=== PATIENT | female | born 1980 | race Caucasian/White ===

== ENCOUNTER 2024-09-14 17:03 | Emergency (ER) | payer OTHER, SELFPAY ==
[2024-09-14 17:05] VITALS: BP 134/88; PULSE 92; RESP 18; TEMP 36.4; O2SAT 99; BMI 29.0
[2024-09-14] MEDS: Ondansetron 4 MG/2 ML Vial IV (17:30)
[2024-09-14] MEDS: Morphine 4 MG/ML Syringe IV ×2 (17:31→19:36)
[2024-09-14 17:42] LABS: Bacteria 0 SEEN /hpf (None Seen); Mucous, Urine 0 SEEN /hpf (<or=2+); Red Blood Cells-Urine 0 SEEN /hpf (0-5); White Blood Cells 0 SEEN /hpf (0-5)
[2024-09-14 17:43] LABS: Absolute Lymphocyte Count 0.49 X10^3/uL (0.83-4.51); Absolute Neutrophil Count 8.4 X10^3/uL (2.0-7.7); Basophil# 0.03 X10^3/uL; Basophil% 0.3 % (0-1); Eosinophil# 0.09 X10^3/uL; Hematocrit 38.3 % (37-47); Hemoglobin 12.9 g/dL (12.0-15.0); Lymphocyte # 0.49 X10^3/ul (0.83-4.51); Lymphocyte % 5.2 % (19-41); Mean Corp Hgb Conc 33.7 g/dL (32-36); Mean Corpuscular Volume 89.1 fL (81-99); Mean Platelet Vol. 8.7 fl (6.2-12.0); Monocyte# 0.32 X10^3/uL; Monocyte% 3.4 % (0-10); NRBC Flagged by Analyzer 0 % (0-5); Neutrophil # 8.37 X10^3/uL (2.7-7.7); Neutrophil % 89.5 % (47-70); POSITIVE DIFFERENTIAL YES; Platelet Count 385 K/mm3 (150-450); RBC Distribution Width SD 42.1 fl (35.1-43.9); White Blood Count 9.4 K/mm3 (4.4-11.0)
[2024-09-14 17:49] LABS: Color, Urine Yellow (Yellow); Glucose, Dipstick Normal (Normal); Ketone-Dipstick Negative (Negative); Leukocyte Esterase-Dipstick Negative /ul (Negative); Nitrite-Dipstick Negative (Negative); Occult Blood-Urine Negative /ul (Negative); Protein-Dipstick 15 mg/dl (Negative); Specific Gravity, Urine 1.015 (1.002-1.030); Urine Bilirubin Dipstick Negative (Negative); Urine Clarity Clear (Clear); Urine Urobilinogen Normal (Normal)
[2024-09-14 17:53] LABS: Internal QC Validated? YES +Cl - CLEAR BKGD; Pregnancy, Urine Negative Negative; Record Kit Lot#,Urine Preg 869294
[2024-09-14 18:04] LABS: ALB/GLOB Ratio 1.1 RATIO (0.9-2.4); AST(SGOT) 31 U/L (15-37); Alanine Aminotransfer ALT/SGPT 45 U/L (13-56); Albumin, Serum 3.5 g/dL (3.2-5.0); Alkaline Phosphatase 64 U/L (45-117); Anion Gap 4 (5-15); BUN 29 mg/dL (7-18); Calcium,Total 7.9 mg/dL (8.5-10.1); Chloride 109 mmol/L (98-107); Creatinine, Serum 0.74 mg/dL (0.55-1.02); EST Glomerular Filtration Rate 91 mL/min (>60); Est Glom Filt Rate - Afr Amer 110 mL/min (>60); Estimated Creatinine Clearance 111.39 ml/min; Globulin 3.3 g/dL (2.2-4.2); Glucose 96 mg/dL (74-106); Lipase 27 U/L (13-75); Potassium 3.8 mmol/L (3.5-5.1); Protein, Total 6.8 g/dL (6.4-8.2); Sodium Level 139 mmol/L (136-145)
[2024-09-14 18:19] LABS: Squamous Epithelial Cells - UA 5-10 SEEN /hpf (5-10)
[2024-09-14 19:04] VITALS: BP 122/85; PULSE 76; RESP 16; O2SAT 99
[2024-09-14] MEDS: Metoclopramide 10 MG/2 ML Vial 5 MG IV (19:36)
[2024-09-14 20:02] VITALS: BP 99/77; PULSE 86; RESP 16; TEMP 36.8; O2SAT 97
== END 2024-09-14 20:04 | disposition home or self-care (01) ==
PROVIDERS: Emergency Provider Emergency Medicine; Visit Provider Emergency Medicine
DX: K52.9 Noninfective gastroenteritis and colitis, unspecified (principal)
CPT/HCPCS: 74177; 80053; 81001; 81025; 83690; 85025; 87631; 96374; 96375; 96376; 99283; Q9967; A4216; J2405

== ENCOUNTER 2025-01-06 16:57 | Emergency (ER) | payer OTHER, SELFPAY ==
[2025-01-06] VITALS (7 sets, daily range): BP systolic 102–162; BP diastolic 70–130; PULSE 89–128; RESP 12–20; TEMP 36.4–36.9; O2SAT 97–100; BMI 29.8
[2025-01-06] MEDS: 0.9% Normal Saline (1000mL) 1,000 ML 1000 ML IV ×2 (19:05→21:53)
[2025-01-06 19:19] LABS: Absolute Lymphocyte Count 2.74 X10^3/uL (0.83-4.51); Basophil# 0.05 X10^3/uL; Basophil% 0.4 % (0-1); Eosinophil# 0.11 X10^3/uL; Eosinophils% 0.9 % (0-5); Hematocrit 36.2 % (37-47); Hemoglobin 12.6 g/dL (12.0-15.0); Lymphocyte # 2.74 X10^3/ul (0.83-4.51); Lymphocyte % 22.7 % (19-41); Mean Corp Hgb Conc 34.8 g/dL (32-36); Mean Corpuscular Hgb 29.9 pg (27.0-32.0); Mean Platelet Vol. 8.7 fl (6.2-12.0); Monocyte# 1.11 X10^3/uL; Monocyte% 9.2 % (0-10); NRBC Flagged by Analyzer 0 % (0-5); Neutrophil # 7.98 X10^3/uL (2.7-7.7); Neutrophil % 66.2 % (47-70); Platelet Count 387 K/mm3 (150-450); RBC Distribution Width CV 12.2 % (11.6-14.6); RBC Distribution Width SD 38.4 fl (35.1-43.9); Red Blood Count 4.21 M/mm3 (4.2-5.4); White Blood Count 12.1 K/mm3 (4.4-11.0)
[2025-01-06 19:51] LABS: Anion Gap 13 (5-15); BUN 23 mg/dL (4-19); BUN/Creat Ratio 31.7 RATIO (10-20); Calcium,Total 9.1 mg/dL (7.6-11.0); Carbon Dioxide 23.8 mmol/L (21.0-32.0); Chloride 100 mmol/L (98-108); Creatinine, Serum 0.73 mg/dL (0.70-1.20); EST Glomerular Filtration Rate 106 (>60); Estimated Creatinine Clearance 113.38 ml/min (50-250); Glucose 92 mg/dL (70-99); Potassium 3.3 mmol/L (3.3-5.1); Sodium Level 137 mmol/L (133-145)
[2025-01-06 19:52] LABS: Lactic Acid 1.7 mmol/L (0.0-2.0)
--- NOTE | 2025-01-06 22:31 | EX.ED.DYSGE1 ---
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 She works as a surgical intensive care nurse. She has a cared for patient with C. difficile recently. She has not been on any antibiotic in the past month. She reports nausea vomiting x 1 on Monday. She had continuous nausea since. She has had profuse diarrhea. She states she is content time since midnight today alone. She does endorse thirst and dry mouth. She does endorse orthostatic lightheadedness. She denies fever or chills. She complains of generalized weakness. She denies headache, visual, ocular auditory symptoms. She denies cardiac or respiratory symptoms. She denies urologic symptoms. Prior similar symptoms: No Recent Illness/Hospitalization: No [facility] Medical History Anxiety Home Medications ?Medication ?Instructions ?Recorded ?Last Taken ?Type hyoscyamine sulfate 0.125 mg 0.125 mg PO Q4H PRN PRN dyspepsia 09/14/24 Unknown Rx tablet (Oscimin) #20 tabs ondansetron 4 mg disintegrating 4 mg PO Q6H PRN nausea and 09/14/24 Unknown Rx tablet vomiting #20 tabs Allergy/AdvReac Type Severity Reaction Status Date / Time No Known Allergies Allergy Verified 09/14/24 17:04 Social History (Updated 01/06/25 @ 22:[address] Emir De La Cruz MD) household members: spouse and children Smoking Status: Never smoker ROS ROS ED Constitutional Constitutional ED: Denies chills, fever(s), subjective or sweats Eyes Eyes: Denies blurry vision, change in vision or diplopia ENT ENT ED: Denies ear pain, rhinorrhea or sore throat Cardiovascular Cardiovascular: Denies chest pain or palpitations Respiratory/Chest Respiratory/Chest: Denies cough, dyspnea or dyspnea on exertion Gastrointestinal Gastrointestinal: Reports abdominal pain, diarrhea, nausea and vomiting; Denies constipation or melena Genitourinary Genitourinary ED: Denies dysuria, hematuria or urinary frequency Musculoskeletal Musculoskeletal: Denies arthralgias or myalgias Integumentary Denies rash Neurologic Neurologic: Reports weakness; Denies headache(s) or paresthesias Hematologic/Lymphatic Hematologic/Lymphatic: Reports systems reviewed and no addt'l complaints, except as documented EXAM Physical Exam Const Vital Signs: 01/06/25 16:57 01/06/25 18:41 01/06/25 19:00 Temperature 97.5 F L 98.0 F 98 F Temperature Source Temporal Oral Oral Pulse Rate 128 H 91 89 Pulse Rate [Lying] Pulse Rate [Sitting (for 1 minute prior to obtaining)] Pulse Rate [Standing (for 1 minute prior to obtaining)] Respiratory Rate 20 H 18 18 Blood Pressure 162/130 H 102/81 H 111/71 Blood Pressure [Lying] Blood Pressure [Sitting (for 1 minute prior to obtaining)] Blood Pressure [Standing (for 1 minute prior to obtaining)] Blood Pressure Mean 140 88 84 Blood Pressure Mean [Lying] Blood Pressure Mean [Sitting (for 1 minute prior to obtaining)] Blood Pressure Mean [Standing (for 1 minute prior to obtaining)] Pulse Ox 97 100 99 Oxygen Delivery Method Room Air Room Air Room Air 01/06/25 20:00 01/06/25 21:21 01/06/25 22:00 Temperature 98 F Temperature Source Oral Pulse Rate 93 91 Pulse Rate [Lying] 93 Pulse Rate [Sitting (for 1 minute prior to obtaining)] 94 Pulse Rate [Standing (for 1 minute prior to obtaining)] 105 H Respiratory Rate 16 12 Blood Pressure 129/86 H 123/83 H Blood Pressure [Lying] 106/70 Blood Pressure [Sitting (for 1 minute prior to obtaining)] 119/81 H Blood Pressure [Standing (for 1 minute prior to obtaining)] 124/83 H Blood Pressure Mean 100 96 Blood Pressure Mean [Lying] 82 Blood Pressure Mean [Sitting (for 1 minute prior to obtaining)] 93 Blood Pressure Mean [Standing (for 1 minute prior to obtaining)] 96 Pulse Ox 98 99 Oxygen Delivery Method Room Air Room Air Positive well nourished and well developed Constitutional Narrative: She appears ill. General Appearance ED: well developed and pallor; Negative for cyanotic, diaphoretic or NAD HEENT Reports dry mucous membranes Mouth ED: Yes dry mucous membranes Mouth: dry mucous membranes Eyes PERRL and EOMs intact bilaterally General Eye ED: Negative for pale conjunctiva or scleral icterus Neck no lymphadenopathy, supple and no JVD Resp normal respiratory effort and clear to auscultation bilaterally Cardio regular rhythm, S1 normal heart sound, S2 normal heart sound and no murmurs Rate: tachycardic GI normal to inspection, nondistended, normoactive bowel sounds, non-distended and no masses; Negative for non-tender or hepatosplenomegaly Auscultation: normoactive bowel sounds Palpation: soft and tender other (Generalized.); Negative for guarding, splenomegaly, mass or rebound tenderness present Back/Spine no CVA tenderness Extremity normal to inspection General Extremety ED: Negative for edema or tenderness General Extremity: Negative for edema Neuro oriented x3 and CN's II-XII intact bilaterally Sensorium / Orientation: alert Psych mental status grossly normal Skin no rashes or lesions noted, no wounds and skin turgor normal General Skin Exam: pallor; Negative for jaundice MDM MDM MDM Narrative Medical decision making narrative: In light of patient's history concerned that she may have pseudomembranous under colitis versus viral infection. Clinically she is dehydrated. CBC, comprehensive metabolic panel and lactate were obtained to risk ratified patient regarding severity and treatment for C. difficile. She received a liter of normal saline. She did not urinate nor is she had the urge to urinate after liter. Second liter was obtained. When she was reassessed prior to ordering the second liter of normal saline she was asleep and had to be awakened. She feels slightly better. Lab Data Lab results narrative: White count is elevated with no shift. Basic metabolic panel reveals an elevated BUN to creatinine ratio of 32:1 consistent with acute [place] azotemia due to dehydration. Her electrolytes are unremarkable. Urinalysis is remarkable for ketones. There is also urobilinogen. Labs: Laboratory Results - last 24 hr 01/06/25 01/06/25 18:55 22:42 WBC 12.1 H RBC 4.21 Hgb 12.6 Hct 36.2 L MCV 86.0 MCH 29.9 MCHC 34.8 RDW Std Deviation 38.4 RDW Coeff of Marc 12.2 Plt Count 387 MPV 8.7 Immature Gran % (Auto) 0.600 Neut % (Auto) 66.2 Lymph % (Auto) 22.7 [place]rell % (Auto) 9.2 Eos % (Auto) 0.9 Baso % (Auto) 0.4 Absolute Neuts (auto) 8.0 H Absolute Lymphs (auto) 2.74 Nucleated RBC % 0 Sodium 137 Potassium 3.3 Chloride 100 Carbon Dioxide 23.8 Anion Gap 13 BUN 23 H Creatinine 0.73 Estim Creat Clear Calc 113.38 Est GFR (MDRD) Non-Af 106 BUN/Creatinine Ratio 31.7 H Glucose 92 Lactic Acid 1.7 Calcium 9.1 Urine Color Yellow Urine Clarity Clear Urine pH 6.5 Ur Specific [place] 1.015 Urine Protein 30 H Urine Glucose (UA) Normal Urine Ketones 150 A* Urine Occult Blood 10 H Urine Nitrite Negative Urine Bilirubin 1 H Urine Urobilinogen 8 H Ur Leukocyte Esterase 25 H Treatment and Re-Evaluation :: Patient was reassessed. She does feel better. She has urinated. Discharge Plan Triage Chief Complaint: Nausea/Vomiting/Diarrhea Other Complaint: Abd Pain ED Provider: Emir De La Cruz Dx/Rx/DC Orders Clinical Impression: Diarrhea, Acute dehydration, Sinus tachycardia seen on court recording monitor, Leukocytosis, Acute prerenal azotemia Instructions: ED Dehydration (Adult), ED Diarrhea, Unknown Cause Prescriptions: No Action hyoscyamine sulfate [Oscimin] 0.125 mg tablet 0.125 mg PO Q4H PRN PRN (Reason: dyspepsia) Qty: 20 0RF ondansetron 4 mg tablet,disintegrating 4 mg PO Q6H PRN (Reason: nausea and vomiting) Qty: 20 0RF Primary Care Provider: Sixto Valdez Referrals: Sixto Valdez MD [Primary Care Provider] - 3-5 Days if not improving Print Language: Moroccan Disposition Disposition: Home, Self Care
[2025-01-06 22:52] LABS: Color, Urine Yellow (Yellow); Glucose, Dipstick Normal (Normal); Leukocyte Esterase-Dipstick 25 /ul (Negative); Nitrite-Dipstick Negative (Negative); Occult Blood-Urine 10 /ul (Negative); Protein-Dipstick 30 mg/dl (Negative); Specific Gravity, Urine 1.015 (1.002-1.030); Urine Clarity Clear (Clear); Urine Urobilinogen 8 mg/dl (Normal); Urine pH 6.5 (5.0 - 8.0)
[2025-01-06 23:00] LABS: Urine Bilirubin Dipstick 1 mg/dL (Negative)
[2025-01-06 23:01] LABS: Ketone-Dipstick 150 mg/dl (Negative)
== END 2025-01-06 23:47 | disposition home or self-care (01) ==
PROVIDERS: Emergency Provider Emergency Medicine; PCP Family Medicine; Visit Provider Emergency Medicine
DX: R19.7 Diarrhea, unspecified (principal); E86.0 Dehydration; R00.0 Tachycardia, unspecified; D72.829 Elevated white blood cell count, unspecified
CPT/HCPCS: 80048; 81002; 83605; 85025; 87493; 96360; 96361; 99285; A4216